=== PATIENT | male | born 2000 | race Hispanic/Latino ===

== ENCOUNTER 2025-03-01 00:02 | Emergency (ER) | payer SELFPAY ==
[~2025-03-01] VITALS: Ht 185.4 cm; Wt 147.4 kg
--- NOTE | 2025-03-01 00:16 | NUR ---
UA CUP PROVIDED
--- NOTE | 2025-03-01 00:19 | EKG ---
[facility] Test Date: 2025-03-01 Test Time: 00:12:32 Pat Name: MARIA ISABEL COLMENARES Department: ED Room: Gender: M Foxing Closer: [id number] : 2000 Requested By: NARGIS VALDIVIA Order Number: [id number] Reading MD: Philip Reich Measurements Intervals [place] Rate: 135 P: 48 CT: 145 QRS: 49 QRSD: 94 T: 49 QT: 295 QTc: 443 Interpretive Statements Sinus tachycardia No previous ECG available for comparison Electronically Signed On 03-02-2025 16:08:09 CDT by Philip Reich Please click the below link to view image of tracing.
--- NOTE | 2025-03-01 00:28 | NUR ---
REPORT TO MARGARET ARTEAGA
[2025-03-01 00:53] LABS: IMMATURE GRANULOCYTE ABSOLUTE 0.09 K/uL (0-1); NUCLEATED RED BLOOD CELLS 0.0 % (0.0-0.19); PLATELET COUNT (AUTO) 313 K/uL (130-400); RED BLOOD CELL COUNT(AUTO) 6.03 MIL/uL (4.50-6.20); RED CELL DISTRIBUTION WIDTH 12.9 % (11.0-15.5); WHITE BLOOD COUNT (AUTO) 15.2 K/uL (4.8-10.8)
[2025-03-01 00:54] LABS: CREATININE 1.2 mg/dL (0.5-1.3); GLOMERULAR FILTR. RATE CALC 88.0 mL/min (>90); GLUCOSE,RANDOM 92.0 mg/dL (70-105); SODIUM SERUM 137.0 mmol/L (136-145); UREA NITROGEN, BLOOD 14.0 mg/dL (7-18)
--- NOTE | 2025-03-01 00:56 | NUR ---
REPORT TO JANNETH ARTEAGA
[2025-03-01 01:02] LABS: CREATINE KINASE, TOTAL 311.0 U/L (21-232)
[2025-03-01 01:43] LABS: APPEARANCE,URINE CLEAR (CLEAR); GLUCOSE, URINE (UA) NEGATIVE (NEGATIVE); LEUKOCYTE ESTERASE ,URINE NEGATIVE Leu/uL (NEGATIVE); NITRATE,URINE NEGATIVE (NEGATIVE); OCCULT BLOOD,URINE SMALL (NEGATIVE)
[2025-03-01 01:46] LABS: ADD UA MICROSCOPIC YES; SQUAMOUS EPITHELIAL CELL,UR RARE /HPF (0-2)
[2025-03-01 01:50] LABS: AMPHET/METH SCREEN,URINE NEGATIVE (NEGATIVE); BARBITURATE SCREEN, URINE NEGATIVE (NEGATIVE); CANNABINOID SCREEN,URINE NEGATIVE (NEGATIVE); COCAINE SCREEN,URINE NEGATIVE (NEGATIVE)
--- NOTE | 2025-03-01 02:09 | ERN ---
General Chief Complaint: Hypertension Stated Complaint: HTN Time Seen by MD: 00:17 Time Seen by Midlevel: 00:17 Source: patient History of Present Illness Initial Comments Patient is a 24-year-old male with a past medical history of hypertension on hydrochlorothiazide presents to the emergency department for evaluation of high blood pressure. For the last two nights the patient has been unable to sleep due to what he believes is on diagnosed anxiety. Patient states that every time he attempts to fall asleep he feels his heart racing. Patient reports a home blood pressure of 170 systolic. On arrival with the patient has no other complaints. Allergies: Coded Allergies: No Known Allergies (Unverified Allergy, Unknown, 03/01/25) Past Medical History Past Medical History: Hypertension Past Surgical History: None ROS Dictation CONSTITUTIONAL: Negative except for HPI HEAD/FACE: Negative except for HPI EENT: Negative except for HPI RESPIRATORY: Negative except for HPI GASTROINTESTINAL/ABDOMINAL: Negative except for HPI GENITOURINARY: Negative except for HPI MUSCULOSKELETAL: Negative except for HPI INTEGUMENTARY: Negative except for HPI NEUROLOGICAL/PSYCH: Negative except for HPI HEMATOLOGIC/LYMPHATIC: Negative except for HPI All Systems Negative, Except as noted above. 13 point review of systems assessed and all negative except for above. Physical Exam Physical Exam Dictation Vital Signs reviewed General Appearance: Alert, oriented x 3, no acute distress, well developed, nourished. Head and Face: non-traumatic. Eyes: PERRL, pink conjunctivas, eyelid no trauma, anterior chamber with arcus se nilis. Ears: Pinnas intact and no signs of trauma or erythema ear canals clear and no discharge TM no erythema Nose: No discharge, no bleeding. Oropharynx: Mouth normal, tongue pink, pharynx clear,no erythema, tonsils no exudates, no abscesses noted, mucous membrane moist Neck: Supple, non-tender, no thyromegaly, no masses, no JVD, no bruits Breast:Deferred Chest:No tenderness, no crepitus, no paradoxical movement, no retractions Lungs:Clear, well-ventilated, symmetric, no rales, no wheezing, no rhonchi, no stridor, good breath sounds bilaterally Heart: Regular rate, regular rhythm, no murmur, no gallops Vascular: no peripheral edema, Abdomen: Soft, positive bowel sounds, nondistended, no guarding, nontender, no rebound, no masses no hepatomegaly, no splenomegaly, no Quintana's sign, no hernias. Rectal: Deferred Genital: Deferred Neurological: Normal speech, motor function intact, sensory function intact Musculoskeletal: Neck nontender, full range of motion, back nontender, full range of motion, Extremities: nontender, full range of motion Skin: Color pink, dry, no turgor, no rash, no lacerations, no abrasions, no contusions. Lymphatic: Deferred Results Laboratory and Microbiology Lab and Micro Result Laboratory Tests Test 03/01/25 00:41 03/01/25 01:16 White Blood Count 15.2 K/uL (4.8-10.8) H Red Blood Count 6.03 MIL/uL (4.50-6.20) Hemoglobin 17.3 g/dL (14.0-18.0) Hematocrit 51.5 % (42-54) Mean Corpuscular Volume 85.4 fL (79-99) Mean Corpuscular Hemoglobin 28.7 pg (27.0-33.0) Mean Corpuscular Hemoglobin Concent 33.6 g/dL (32.0-36.0) Red Cell Distribution Width 12.9 % (11.0-15.5) Platelet Count 313 K/uL (130-400) Mean Platelet Volume 10.3 fL (7.5-10.5) Immature Granulocyte % (Auto) 0.6 % (0-1) Neutrophils (%) (Auto) 74.0 % (40.0-77.0) Lymphocytes (%) (Auto) 18.6 % (21.0-51.0) L Monocytes (%) (Auto) 6.2 % (3.0-13.0) Eosinophils (%) (Auto) 0.1 % (0.0-8.0) Basophils (%) (Auto) 0.5 % (0.0-5.0) Neutrophils # (Auto) 11.3 K/uL (1.8-7.7) H Lymphocytes # (Auto) 2.8 K/uL (1.0-4.8) Monocytes # (Auto) 0.9 K/uL (0.1-1.0) Eosinophils # (Auto) 0.02 K/uL (0.00-0.70) Basophils # (Auto) 0.08 K/uL (0.00-0.20) Absolute Immature Granulocyte (auto 0.09 K/uL (0-1) Nucleated Red Blood Cells 0.0 % (0.0-0.19) Sodium Level 137 mmol/L (136-145) Potassium Level 3.6 mmol/L (3.5-5.1) Chloride Level 96 mmol/L (101-111) L Carbon Dioxide Level 26 mmol/L (21-32) Blood Urea Nitrogen 14 mg/dL (7-18) Creatinine 1.2 mg/dL (0.5-1.3) Glomerular Filtration Rate Calc 88 mL/min (>90) Random Glucose 92 mg/dL (70-105) Total Calcium 9.6 mg/dL (8.5-10.1) Total Creatine Kinase 311 U/L (21-232) H Troponin I High Sensitivity 6.8 ng/L (4-75) Urine Color YELLOW (YELLOW) Urine Appearance CLEAR (CLEAR) Urine pH 5.5 (5.0-8.0) Urine Specific [place] 1.027 (1.001-1.031) Urine Protein 20 mg/dL (NEGATIVE) H Urine Glucose (UA) NEGATIVE mg/dL (NEGATIVE) Urine Ketones 100 mg/dL (NEGATIVE) H Urine Occult Blood SMALL (NEGATIVE) H Urine Nitrate NEGATIVE (NEGATIVE) Urine Bilirubin NEGATIVE mg/dL (NEGATIVE) Urine Urobilinogen 0.2 mg/dL (0.2-1.0) Urine Leukocyte Esterase NEGATIVE Enrique/uL Urine RBC 2-5 /HPF (0-1) H Urine WBC 2-5 /HPF (0-1) H Urine Squamous Epithelial Cells RARE /HPF (0-2) Urine Bacteria None /HPF (None Seen) Urine Opiates Screen NEGATIVE (NEGATIVE) Urine Barbiturates Screen NEGATIVE (NEGATIVE) Urine Phencyclidine Screen NEGATIVE (NEGATIVE) Urine Amphetamines Screen NEGATIVE (NEGATIVE) Urine Benzodiazepines Screen NEGATIVE (NEGATIVE) Urine Cocaine Screen NEGATIVE (NEGATIVE) Urine Marijuana (THC) Screen NEGATIVE (NEGATIVE) Labs Reviewed?: Yes MDM MDM: Differential diagnosis: Anxiety, acute coronary syndrome, uncontrolled hypertension There are no social concerns with this patient. Prescription drug management Prescriptions will include: None Medical management and examination interpretation discussions were had by me with other qualified healthcare professionals as indicated for the patient's care. ED Course Orders Procedure Category Date Status Time Vital Signs Per CPOE 03/01/25 Transmitted Routine 00:14 Chest 1vw RAD 03/01/25 Taken 00:14 12 Lead Ekg Tracing- EKG 03/01/25 Complete Technical 00:14 Oxygen By Nc/Pulse Ox CPOE 03/01/25 Transmitted 00:14 Maintain Iv CPOE 03/01/25 Transmitted 00:14 Iv Insertion CPOE 03/01/25 Transmitted 00:14 Cardiac Monitoring CPOE 03/01/25 Transmitted 00:14 Pulse Oximetry With CPOE 03/01/25 Transmitted Vs And Prn 00:14 Cbc With Differential LAB 03/01/25 Complete 00:14 Activity: Br W/Brp CPOE 03/01/25 Transmitted With Assist 00:14 Urinalysis Profile LAB 03/01/25 Complete 00:14 Basic Metabolic Panel LAB 03/01/25 Complete 00:14 Cardiac Panel LAB 03/01/25 Complete 00:41 Drug Screen Urine LAB 03/01/25 Complete 01:14 Vital Signs Date Time Temp Pulse Resp B/P (MAP) Pulse Ox O2 Delivery O2 Flow Rate FiO2 03/01/25 00:11 98.1 122 20 193/107 99 Room Air DX & DISP Disposition: Discharge Departure Impression: Primary Impression: Uncontrolled hypertension Condition: Stable Additional Instructions: Your blood work today is unremarkable. Your EKG does not show any evidence of a heart attack. Your chest x-ray is normal. Follow up with your primary care doctor for possible blood pressure medication adjustments. Referrals: SRINI DELAROSA MD (PCP) Time of Disposition: 02:07 I have reviewed the case, and I agree with, Diagnosis and Plan I performed the substantive portion of the visit. I have reviewed and personally made and approve the management plan that is documented in the note by myself or the MAHOGANY. I acknowledge for responsibility for the patient's management plan. SARAH STILES Mar 01, 2025 02:09
[2025-03-01 02:12] VITALS: BP 147/92; PULSE 94; RESP 18; TEMP 98.6; O2SAT 98
--- NOTE | 2025-03-01 03:34 | HMCIMG ---
EXAM: CR Chest, 1 view CLINICAL HISTORY: Chest pain. COMPARISON: None provided. FINDINGS: The lungs show no infiltrates or other acute findings. The bilateral CP angles are excluded from the image. No large pleural effusion or pneumothorax. The cardiomediastinal silhouette is within normal limits. No acute osseous abnormality. IMPRESSION: No acute cardiopulmonary process is evident. /[place]
== END 2025-03-01 02:20 | disposition home or self-care (01) ==
LOC: EDH 00:02
DX: F41.9 Anxiety disorder, unspecified (principal); I10 Essential (primary) hypertension
CPT/HCPCS: 36415; 71045; 80048; 80305; 81001; 82550; 84484; 85025; 93005; 99285